=== PATIENT | female | born 1945 | race Hispanic/Latino ===

== ENCOUNTER 2018-04-11 14:22 | Inpatient (IN) | payer MEDICARE, OTHER ==
[~2018-04-11] VITALS: Ht 157.5 cm; Wt 68.0 kg
[2018-04-11 15:04] LABS: BASOPHILS % (AUTO) 0.8 % (0.0-5.0); EOSINOPHILS % (AUTO) 1.5 % (0.0-8.0); HEMATOCRIT 35.2 % (36-48); LYMPHOCYTES % (AUTO) 18.7 % (21.0-51.0); MEAN CORPUSCULAR HEMOGLOBIN 30.9 pg (27.0-33.0); MEAN CORPUSCULAR HGB CONC 33.6 g/dL (32.0-36.0); MEAN CORPUSCULAR VOLUME 91.8 fL (79-99); MONOCYTES % (AUTO) 7.6 % (3.0-13.0); NEUTROPHILS % (AUTO) 71.4 % (40.0-77.0); PLATELET COUNT (AUTO) 318 K/uL (130-400); RED BLOOD CELL COUNT(AUTO) 3.83 MIL/uL (4.00-5.50); WHITE BLOOD COUNT (AUTO) 14.3 K/uL (4.8-10.8)
[2018-04-11] MEDS ORDERED: SODIUM CHLORIDE 0.9% 1000ML 1,000 ML IV ONE (15:09)
[2018-04-11 15:18] LABS: INR 0.98 (0.85-1.15); PARTIAL THROMBOPLASTIN TIME 32.1 SEC (26.3-35.5); PROTHROMBIN TIME 10.3 SEC (9.6-11.6)
[2018-04-11 15:19] LABS: POTASSIUM 3.9 mmol/L (3.5-5.1)
[2018-04-11 15:24] LABS: ALBUMIN 3.5 g/dL (3.5-5.0); BILIRUBIN,TOTAL 0.3 mg/dL (0.2-1.0); TOTAL PROTEIN, SERUM 8.2 g/dL (6.0-8.3)
[2018-04-11 15:31] LABS: BILIRUBIN,URINE Negative (NEGATIVE); COLOR,URINE Yellow (YELLOW); GLUCOSE, URINE (UA) Negative (NEGATIVE); KETONES,URINE Negative (NEGATIVE); LEUKOCYTE ESTERASE ,URINE Small (NEGATIVE); NITRATE,URINE Negative (NEGATIVE); OCCULT BLOOD,URINE Negative (NEGATIVE); PROTEIN,URINE Negative (NEGATIVE); UROBILINOGEN,URINE 0.2 mg/dL (0.2-1.0)
[2018-04-11 15:33] LABS: APPEARANCE,URINE CLEAR (CLEAR); BACTERIA,URINE Few /HPF (None Seen); RBC,URINE None Seen /HPF (0-1); SQUAMOUS EPITHELIAL CELL,UR None Seen /HPF (0-2)
[2018-04-11] MEDS ORDERED: ZOSYN 3.375GM+NS 50ML 50 ML IV ONE (16:01)
[2018-04-11] MEDS ORDERED: SODIUM CHLORIDE 0.9% 50 ML IV ONE (16:02)
[2018-04-11] MEDS ORDERED: MORPHINE SULFATE 4 MG/1ML SYG ONE ×2 (16:11→20:13)
[2018-04-11] MEDS: SODIUM CHLORIDE 0.9% 1000ML 1,000 ML IV SCH ×2 (18:07→23:45)
[2018-04-11] MEDS: ZOSYN 3.375GM+NS 50ML 50 ML IV SCH (21:00)
[2018-04-11] MEDS: ENOXAPARIN SODIUM 30 MG/0.3 ML SQ SCH (21:00)
[2018-04-11] MEDS ORDERED: ONDANSETRON HCL 4 MG/2 ML VIAL ONE (21:39)
--- NOTE | 2018-04-11 23:10 | NUR ---
ADMISSION NOTE ADMIT TO ROOM 412 VIA STRETCHER FROM ER. PATIENT AWAKE, ALERT, OX3, NO SOB, NO C/O PAIN AT THIS TIME, LEFT HAND WITH 20 GAUGE CATHETER WITH IVF INFUSING WELL, REINFORCE NPO STATUS, FALL PRECAUTIONS, CALL MENDEZ AT REACH,. TEACH PATIENT PLAN OF CARE AND EXPECTED OUTCOME
[2018-04-11] MEDS ORDERED: LOSA50TA64 PO (23:25)
[2018-04-11] MEDS ORDERED: TRAZ-187 PO (23:25)
[2018-04-11] MEDS ORDERED: LAMO100T56 PO (23:25)
[2018-04-11] MEDS ORDERED: VORTIOXETINE 10 MG PO (23:25)
[2018-04-11] MEDS ORDERED: HYD25 PO (23:25)
[2018-04-11] MEDS: MORPHINE SULFATE 4 MG/1ML SYG IV PRN (23:44)
[2018-04-11] MEDS: FAMOTIDINE/PF 20 MG/2 ML VIAL IV SCH (23:44)
[2018-04-12] VITALS (7 sets, daily range): BP systolic 104–143; BP diastolic 40–68
[2018-04-12] MEDS: ZOSYN 3.375GM+NS 50ML 50 ML IV SCH ×3 (04:43→21:37)
[2018-04-12] MEDS: SODIUM CHLORIDE 0.9% 1000ML 1,000 ML IV SCH ×3 (07:27→21:51)
[2018-04-12] MEDS: FAMOTIDINE/PF 20 MG/2 ML VIAL IV SCH ×2 (08:52→21:37)
[2018-04-12 08:53] LABS: BASOPHILS % (AUTO) 0.7 % (0.0-5.0); EOSINOPHILS % (AUTO) 2.2 % (0.0-8.0); HEMATOCRIT 30.8 % (36-48); LYMPHOCYTES % (AUTO) 26.4 % (21.0-51.0); MEAN CORPUSCULAR HEMOGLOBIN 30.2 pg (27.0-33.0); MEAN CORPUSCULAR HGB CONC 33.1 g/dL (32.0-36.0); MEAN CORPUSCULAR VOLUME 91.4 fL (79-99); MONOCYTES % (AUTO) 10.1 % (3.0-13.0); NEUTROPHILS % (AUTO) 60.6 % (40.0-77.0); PLATELET COUNT (AUTO) 238 K/uL (130-400); RED BLOOD CELL COUNT(AUTO) 3.37 MIL/uL (4.00-5.50); RED CELL DISTRIBUTION WIDTH 13.3 % (11.0-15.5); WHITE BLOOD COUNT (AUTO) 10.5 K/uL (4.8-10.8)
[2018-04-12] MEDS: ENOXAPARIN SODIUM 30 MG/0.3 ML SQ SCH ×2 (08:53→21:38)
[2018-04-12] MEDS: TRINTELIX PO SCH (09:00)
[2018-04-12] MEDS: LOSARTAN 50 MG TABLET PO SCH (09:02)
[2018-04-12] MEDS: ACETAMINOPHEN 325 MG TAB PO PRN ×2 (11:41→19:34)
--- NOTE | 2018-04-12 11:50 | NUR ---
Nutrition Intervention: Nutrition consult for poor appetite, diverticulitis. Pt. admitted with Dx of diverticulitis, acute nausea. Pt. on Clear liquid diet. Pt. reports good p.o. intake and no problems with N/V. Labs reviewed(Alb 3.5). LBM: 04/12/18, loose per pt.; states due to antibiotics. SR-20, loose. BMI: 27.5, normal for age. Pt. and family member educated on Low Fiber diet and provided with education material. Pt. / family member verbalized understanding. Recommendations: 1) Rec. advance diet as tolerated to Low fiber Low residue Soft diet. 2) Low Fiber diet education given to patient and family member. 3) Continue to monitor pt's nutritional status and diet advancement. 4) RD to f/u in 3-5 days. Addendum: 04/12/18 at [address] Amended: Links added.
[2018-04-12] MEDS ORDERED: IBUPROFEN 200 MG TAB PO PRN (15:30)
[2018-04-12] MEDS ORDERED: LOPERAMIDE HCL 2 MG CAP PO SCH (15:30)
[2018-04-12] MEDS ORDERED: SIMETHICONE 80 MG TAB.CHEW PO PRN (15:30)
[2018-04-12] MEDS: MORPHINE SULFATE 4 MG/1ML SYG IV PRN (15:47)
--- NOTE | 2018-04-12 17:33 | NUR ---
INITIAL: Met with pt this afternoon to discuss dcp. Pt states that she lives w her spouse. Prior to admission was independent w ambulation and ADLs. She does not own any DME or receive services. Pt states that she feels safe and comfortable to return home at pr. Will continue to follow and wait for Md recommendations. Addendum: 04/12/18 at 1734 by BARRY ARCE CM Amended: Links added.
[2018-04-12] MEDS: HYDROXYZINE HCL 25 MG TABLET PO SCH (21:37)
[2018-04-12] MEDS: LAMOTRIGINE 25 MG TAB PO SCH (21:37)
[2018-04-12] MEDS: TRAZODONE HCL 100 MG TABLET PO SCH (21:38)
[2018-04-12] MEDS: ONDANSETRON HCL 4 MG/2 ML VIAL IV PRN (21:53)
[2018-04-13] MEDS: SODIUM CHLORIDE 0.9% 1000ML 1,000 ML IV SCH (02:41)
[2018-04-13 04:00] VITALS: BP 139/70
[2018-04-13] MEDS: ZOSYN 3.375GM+NS 50ML 50 ML IV SCH (04:51)
[2018-04-13 05:02] LABS: BASOPHILS % (AUTO) 0.7 % (0.0-5.0); HEMATOCRIT 28.3 % (36-48); LYMPHOCYTES % (AUTO) 43.2 % (21.0-51.0); MEAN CORPUSCULAR HEMOGLOBIN 31.8 pg (27.0-33.0); MEAN CORPUSCULAR HGB CONC 34.2 g/dL (32.0-36.0); MEAN CORPUSCULAR VOLUME 92.8 fL (79-99); MONOCYTES % (AUTO) 8.6 % (3.0-13.0); NEUTROPHILS % (AUTO) 43.5 % (40.0-77.0); PLATELET COUNT (AUTO) 227 K/uL (130-400); RED BLOOD CELL COUNT(AUTO) 3.05 MIL/uL (4.00-5.50); RED CELL DISTRIBUTION WIDTH 13.1 % (11.0-15.5); WHITE BLOOD COUNT (AUTO) 7.4 K/uL (4.8-10.8)
[2018-04-13 05:07] LABS: CREATININE 0.9 mg/dL (0.5-1.5); POTASSIUM 3.5 mmol/L (3.5-5.1)
[2018-04-13] MEDS ORDERED: POTASSIUM CHLORIDE 20 MEQ ERTAB PO ONE (05:25)
[2018-04-13] MEDS ORDERED: POTASSIUM CHLORIDE 10% ELIXIR 20 MEQ/15 ML UDCUP PO PRN (05:30)
[2018-04-13] MEDS ORDERED: LIDOCAINE HCL-MPF 1% 2ML VIAL IVP PRN (05:30)
[2018-04-13] MEDS ORDERED: POTASSIUM CHLORIDE 20 MEQ ERTAB PO PRN (05:30)
[2018-04-13] MEDS ORDERED: POTASSIUM CHLORIDE 20MEQ/100ML 100 ML IV PRN (05:30)
[2018-04-13 08:00] VITALS: BP 138/75
[2018-04-13] MEDS: LOSARTAN 50 MG TABLET PO SCH (08:59)
[2018-04-13] MEDS: TRINTELIX PO SCH (08:59)
[2018-04-13] MEDS: FAMOTIDINE/PF 20 MG/2 ML VIAL IV SCH ×2 (08:59→21:34)
[2018-04-13] MEDS: ENOXAPARIN SODIUM 30 MG/0.3 ML SQ SCH ×2 (09:00→21:35)
[2018-04-13] MEDS ORDERED: HYDROCODONE/ACETAMINOPHEN 5/325 MG TAB PO PRN (10:30)
[2018-04-13 12:00] VITALS: BP 150/69
[2018-04-13] MEDS: LEVOFLOXACIN 500 MG TABLET PO SCH (12:23)
[2018-04-13] MEDS ORDERED: CETIRIZINE HCL 5 MG TABLET PO ONE (12:30)
[2018-04-13 16:00] VITALS: BP 177/88
[2018-04-13] MEDS: METRONIDAZOLE 500 MG TABLET PO SCH ×2 (16:46→21:36)
[2018-04-13] MEDS: ONDANSETRON HCL 4 MG/2 ML VIAL IV PRN (19:08)
[2018-04-13 19:32] VITALS: BP 178/84
[2018-04-13] MEDS: HYDROXYZINE HCL 25 MG TABLET PO SCH (21:36)
[2018-04-13] MEDS: TRAZODONE HCL 100 MG TABLET PO SCH (21:36)
[2018-04-13] MEDS: LAMOTRIGINE 25 MG TAB PO SCH (21:36)
[2018-04-13 23:25] VITALS: BP 130/59
[2018-04-14 04:00] VITALS: BP 150/64
[2018-04-14] MEDS: METRONIDAZOLE 500 MG TABLET PO SCH ×2 (05:15→13:36)
[2018-04-14 05:52] LABS: BASOPHILS % (AUTO) 0.7 % (0.0-5.0); HEMATOCRIT 29.8 % (36-48); LYMPHOCYTES % (AUTO) 24.3 % (21.0-51.0); MEAN CORPUSCULAR HEMOGLOBIN 30.6 pg (27.0-33.0); MEAN CORPUSCULAR HGB CONC 33.1 g/dL (32.0-36.0); MEAN CORPUSCULAR VOLUME 92.3 fL (79-99); MONOCYTES % (AUTO) 8.3 % (3.0-13.0); NEUTROPHILS % (AUTO) 63.7 % (40.0-77.0); NUCLEATED RED BLOOD CELLS 0.1 % (0.0-0.19); PLATELET COUNT (AUTO) 231 K/uL (130-400); RED BLOOD CELL COUNT(AUTO) 3.23 MIL/uL (4.00-5.50); RED CELL DISTRIBUTION WIDTH 13.3 % (11.0-15.5); WHITE BLOOD COUNT (AUTO) 9.9 K/uL (4.8-10.8)
[2018-04-14 06:06] LABS: POTASSIUM 3.9 mmol/L (3.5-5.1)
[2018-04-14 08:38] VITALS: BP 137/64
[2018-04-14] MEDS ORDERED: CETIRIZINE HCL 5 MG TABLET PO SCH (09:00)
[2018-04-14] MEDS: TRINTELIX PO SCH (09:00)
[2018-04-14] MEDS: LEVOFLOXACIN 500 MG TABLET PO SCH (09:54)
[2018-04-14] MEDS: LOSARTAN 50 MG TABLET PO SCH (09:54)
[2018-04-14] MEDS: FAMOTIDINE/PF 20 MG/2 ML VIAL IV SCH (09:55)
[2018-04-14] MEDS: ENOXAPARIN SODIUM 30 MG/0.3 ML SQ SCH (09:57)
[2018-04-14] MEDS ORDERED: LEVO500T2 PO (11:02)
[2018-04-14] MEDS ORDERED: METR500T PO (11:02)
[2018-04-14 11:58] VITALS: BP 142/54
--- NOTE | 2018-04-14 13:50 | NUR ---
Patient discharged in stable condition. Patient/ given discharge instructions. Instructed on when to take next scheduled dose of antibiotics and instructed on discharge dx of diverticulitis. Patient/ verbalized understanding to all teaching. IV discontinued to Left forearm 20g. tolerated well. No other questions or concerns voiced.
== END 2018-04-14 14:00 | disposition home or self-care (01) | DRG 392 ==
LOC: EDH 14:22 → EDHIP 17:40 → OBSVTOIN 17:40 → 4BH 23:03
PROVIDERS: ADMIT Internal Medicine; ATTEND Internal Medicine
DX: K57.32 Diverticulitis of large intestine without perforation or abscess without bleeding (principal); N39.0 Urinary tract infection, site not specified; A04.72 Enterocolitis due to Clostridium difficile, not specified as recurrent; R51 Headache; F32.9 Major depressive disorder, single episode, unspecified; Z90.49 Acquired absence of other specified parts of digestive tract; Z88.8 Allergy status to other drugs, medicaments and biological substances
CPT/HCPCS: 36415; 70450; 74177; 80048; 80053; 81001; 82550; 83690; 84484; 85025; 85610; 85730; 87324; 93005; G0378; J1650; J2270; J2405; J2543; J3490; J7030

== ENCOUNTER → 2018-12-25 | Outpatient (CLI) | payer MEDICARE ==
[~2018-12-25] MED LIST: HYD25 PO; LAMO100T56 PO; LEVO500T2 PO; LOSA50TA64 PO; METR500T PO; TRAZ-187 PO; VORTIOXETINE 10 MG PO
== END | disposition home or self-care (01) ==
LOC: RAH 10:49
PROVIDERS: ATTEND Internal Medicine
DX: M75.101 Unspecified rotator cuff tear or rupture of right shoulder, not specified as traumatic (principal); M25.411 Effusion, right shoulder
CPT/HCPCS: 73221

== ENCOUNTER 2019-05-07 15:11 | Observation (INO) | payer MEDICARE ==
[~2019-05-07] VITALS: Ht 157.5 cm; Wt 67.0 kg
[~2019-05-07 15:11] MED LIST changes: +ERGO1TAB28 PO; +FLUO40CA7 PO; +GABA100C PO; -HYD25 PO; +HYDR-3421 PO; -LAMO100T56 PO; +LAMO50TA3 PO; -LEVO500T2 PO; +LOSA100T58 PO; -LOSA50TA64 PO; +MELA5CAP PO; -METR500T PO; +VIT1TABL6 PO; -VORTIOXETINE 10 MG PO
[2019-05-07] MEDS ORDERED: ONDANSETRON HCL 4 MG/2 ML VIAL ONE (15:59)
[2019-05-07] MEDS ORDERED: SODIUM CHLORIDE 0.9% 1000ML 1,000 ML IV ONE (15:59)
[2019-05-07 16:05] LABS: BASOPHILS % (AUTO) 0.5 % (0.0-5.0); EOSINOPHILS % (AUTO) 0.1 % (0.0-8.0); HEMATOCRIT 34.1 % (36-48); LYMPHOCYTES % (AUTO) 20.5 % (21.0-51.0); MEAN CORPUSCULAR HEMOGLOBIN 30.7 pg (27.0-33.0); MEAN CORPUSCULAR HGB CONC 34.6 g/dL (32.0-36.0); MEAN CORPUSCULAR VOLUME 88.8 fL (79-99); MONOCYTES % (AUTO) 8.1 % (3.0-13.0); NEUTROPHILS % (AUTO) 70.5 % (40.0-77.0); PLATELET COUNT (AUTO) 323 K/uL (130-400); RED BLOOD CELL COUNT(AUTO) 3.84 MIL/uL (4.00-5.50); RED CELL DISTRIBUTION WIDTH 11.9 % (11.0-15.5)
[2019-05-07 16:19] LABS: CREATININE 0.9 mg/dL (0.5-1.5); POTASSIUM 3.5 mmol/L (3.5-5.1)
[2019-05-07 16:24] LABS: MAGNESIUM 2.3 mg/dL (1.80-2.40)
[2019-05-07] MEDS ORDERED: SODIUM CHLORIDE 0.9% 1000ML 1,000 ML IV SCH (17:19)
[2019-05-07] MEDS ORDERED: CEFTRIAXONE SODIUM 1 GM IVP SCH (17:30)
[2019-05-07] MEDS ORDERED: LACTULOSE 20 GM/30 ML UDCUP PO PRN (17:30)
[2019-05-07] MEDS ORDERED: MORPHINE SULFATE 2 MG/ML 1ML SYG IV PRN (17:30)
[2019-05-07] MEDS ORDERED: ACETAMINOPHEN 325 MG TAB PO PRN ×2 (17:30)
[2019-05-07] MEDS ORDERED: ONDANSETRON HCL 4 MG/2 ML VIAL IV PRN (17:30)
[2019-05-07] MEDS ORDERED: ENOXAPARIN SODIUM 40 MG/0.4 ML SYRINGE SQ ONE (18:25)
[2019-05-07 19:00] VITALS: BP 159/73
[2019-05-07] MEDS: SODIUM CHLORIDE 0.9% 1000ML 1,000 ML IV SCH (20:00)
[2019-05-07] MEDS: FAMOTIDINE/PF 20 MG/2 ML VIAL IV SCH (21:18)
[2019-05-07 23:37] LABS: APPEARANCE,URINE Clear (CLEAR); BILIRUBIN,URINE Negative (NEGATIVE); COLOR,URINE Yellow (YELLOW); GLUCOSE, URINE (UA) Negative (NEGATIVE); KETONES,URINE 40 mg/dL (NEGATIVE); LEUKOCYTE ESTERASE ,URINE Moderate (NEGATIVE); NITRATE,URINE Negative (NEGATIVE); OCCULT BLOOD,URINE Negative (NEGATIVE); PH,URINE 6.5 (5.0-8.0); PROTEIN,URINE Trace mg/dL (NEGATIVE)
[2019-05-07 23:56] LABS: BACTERIA,URINE Moderate /HPF (None Seen); MUCUS,URINE Moderate LPF (None Seen); RBC,URINE None Seen /HPF (0-1); SQUAMOUS EPITHELIAL CELL,UR Few /HPF (0-2)
[2019-05-08 00:34] VITALS: BP 155/83
[2019-05-08 03:00] VITALS: BP 150/73
[2019-05-08] MEDS: SODIUM CHLORIDE 0.9% 1000ML 1,000 ML IV SCH ×2 (03:45→13:45)
[2019-05-08] MEDS ORDERED: HYDR25TA PO (04:02)
[2019-05-08] MEDS ORDERED: FLUO20CA30 PO (04:02)
[2019-05-08] MEDS ORDERED: LORAZEPAM 2 MG/ML 1 ML VIAL IVP PRN (04:15)
[2019-05-08] MEDS ORDERED: LORAZEPAM 2 MG/ML 1 ML VIAL ONE (04:18)
[2019-05-08 07:51] VITALS: BP 159/73
[2019-05-08] MEDS: FAMOTIDINE/PF 20 MG/2 ML VIAL IV SCH (08:25)
[2019-05-08] MEDS ORDERED: ENOXAPARIN SODIUM 40 MG/0.4 ML SYRINGE SQ SCH (09:00)
[2019-05-08] MEDS ORDERED: CEFTRIAXONE SODIUM 1 GM IVP SCH (10:00)
[2019-05-08] MEDS ORDERED: LACTULOSE 20 GM/30 ML UDCUP PO PRN (10:00)
[2019-05-08] MEDS ORDERED: LOSARTAN 100 MG TABLET PO SCH (10:00)
[2019-05-08 10:48] VITALS: BP 162/69
[2019-05-08 14:44] LABS: BASOPHILS % (AUTO) 0.6 % (0.0-5.0); EOSINOPHILS % (AUTO) 0.1 % (0.0-8.0); LYMPHOCYTES % (AUTO) 23.6 % (21.0-51.0); MEAN CORPUSCULAR HEMOGLOBIN 30.4 pg (27.0-33.0); MEAN CORPUSCULAR HGB CONC 33.6 g/dL (32.0-36.0); MEAN CORPUSCULAR VOLUME 90.4 fL (79-99); MONOCYTES % (AUTO) 10.3 % (3.0-13.0); NEUTROPHILS % (AUTO) 64.9 % (40.0-77.0); PLATELET COUNT (AUTO) 300 K/uL (130-400); RED BLOOD CELL COUNT(AUTO) 3.65 MIL/uL (4.00-5.50); WHITE BLOOD COUNT (AUTO) 11.1 K/uL (4.8-10.8)
[2019-05-08] MEDS ORDERED: LEVO500T2 PO (14:57)
[2019-05-08 14:59] LABS: ALBUMIN 3.7 g/dL (3.5-5.0); BILIRUBIN,TOTAL 0.3 mg/dL (0.2-1.0); CREATININE 0.9 mg/dL (0.5-1.5); POTASSIUM 3.6 mmol/L (3.5-5.1); TOTAL PROTEIN, SERUM 7.3 g/dL (6.0-8.3)
--- NOTE | 2019-05-08 15:13 | NUR ---
CALLEDTO DR KING OFFICE AND DR BEARD FROM [facility] ,PER PATIENT REQUEST TO GET MED LIST .. NO ANSWER ON DR KING AND OFFICE FOR [facility] IS ONLY OPEN FROM SAT TO SATURDAY .
[2019-05-08 16:00] VITALS: BP 190/89
--- NOTE | 2019-05-08 16:00 | NUR ---
Initial Assessment SW spoke with patient. Patient lives with spouse. No home services. DME: [facility], glucometer (no insulin). Patient is independent and drives. PCP is Dr. Ryder. Pharmacy is [facility]. DCP is for home. Patient is presently on a 1:1 observation due to having anxiety and panic attacks. Patient states she sees Psychiatrist from [place]- Dr. Deyanira Mckay every 3 months. Patient admits that she has not seen Psychiatrist since May 2018. Patient denies auditory and visual hallucinations. Patient also denies suicidal and/or homicidal ideations. SW will continue to follow up with patient as needed. Addendum: 05/08/19 at 1608 by DAKOTA FABIAN Amended: Links added.
[2019-05-08] MEDS ORDERED: HYDRALAZINE HCL 20 MG/ML VIAL IV SCH (16:34)
[2019-05-08 17:32] VITALS: BP 153/67
[2019-05-08] MEDS ORDERED: LAMOTRIGINE 25 MG TAB PO SCH (21:00)
[2019-05-08] MEDS ORDERED: GABAPENTIN 100 MG CAPSULE PO SCH (21:00)
[2019-05-08] MEDS ORDERED: HYDROXYZINE HCL 25 MG TABLET PO SCH (21:00)
[2019-05-08] MEDS ORDERED: **HM** MELATONIN 5MG PO SCH (21:00)
[2019-05-08] MEDS ORDERED: TRAZODONE HCL 100 MG TABLET PO SCH (21:00)
[2019-05-09] MEDS ORDERED: LOSARTAN 100 MG TABLET PO SCH (09:00)
[2019-05-09] MEDS ORDERED: CEREFOLIN PO SCH (09:00)
[2019-05-09] MEDS ORDERED: LEVOFLOXACIN 500 MG TABLET PO SCH (09:00)
[2019-05-09] MEDS ORDERED: ERGOTAMINE PO PRN (09:00)
[2019-05-09] MEDS ORDERED: CAFFEINE PO PRN (09:00)
[2019-05-09] MEDS ORDERED: FLUOXETINE HCL 20 MG CAPSULE PO SCH (09:00)
== END 2019-05-08 18:48 | disposition home or self-care (01) ==
LOC: EDH 15:11 → EDHIP 17:19 → 4CH 19:10
PROVIDERS: ADMIT Family Medicine; ATTEND Family Medicine
DX: E87.1 Hypo-osmolality and hyponatremia (principal); R11.2 Nausea with vomiting, unspecified; R10.11 Right upper quadrant pain; N39.0 Urinary tract infection, site not specified; E86.9 Volume depletion, unspecified; F32.9 Major depressive disorder, single episode, unspecified; F41.9 Anxiety disorder, unspecified; E03.9 Hypothyroidism, unspecified; E78.5 Hyperlipidemia, unspecified; Z90.49 Acquired absence of other specified parts of digestive tract; Z79.899 Other long term (current) drug therapy; Z88.6 Allergy status to analgesic agent; Z88.8 Allergy status to other drugs, medicaments and biological substances
CPT/HCPCS: 36415 ×2; 74176; 76705; 80048; 80053; 81001; 82550 ×2; 82977; 83735; 83935; 84484; 85025 ×2; 87088; 93005; 96361 ×2; 96372; 96374; 96375; 96376; 99284; G0378 ×25; J0360; J0696; J1650 ×2; J2060; J2405; J3490 ×2; J7030

== ENCOUNTER → 2021-12-28 | Outpatient (CLI) | payer OTHER ==
[~2021-12-28] MED LIST changes: +FLUO20CA30 PO; -FLUO40CA7 PO; +HYDR25TA PO; +LEVO500T2 PO
== END | disposition home or self-care (01) ==
LOC: RAH 10:13
PROVIDERS: ATTEND Internal Medicine
DX: K57.92 Diverticulitis of intestine, part unspecified, without perforation or abscess without bleeding (principal); M47.815 Spondylosis without myelopathy or radiculopathy, thoracolumbar region
CPT/HCPCS: 74176

== ENCOUNTER 2022-01-24 02:43 | Emergency (ER) | payer OTHER ==
[~2022-01-24] VITALS: Ht 157.5 cm; Wt 72.6 kg
[2022-01-24] MEDS ORDERED: PROCHLORPERAZINE 10MG/2ML INJ ONE (03:15)
[2022-01-24 03:20] LABS: BASOPHILS % (AUTO) 1.1 % (0.0-5.0); EOSINOPHILS % (AUTO) 3.9 % (0.0-8.0); HEMATOCRIT 33.2 % (36-48); LYMPHOCYTES % (AUTO) 41.5 % (21.0-51.0); MEAN CORPUSCULAR HEMOGLOBIN 30.7 pg (27.0-33.0); MEAN CORPUSCULAR HGB CONC 33.4 g/dL (32.0-36.0); MONOCYTES % (AUTO) 9.8 % (3.0-13.0); NEUTROPHILS % (AUTO) 43.4 % (40.0-77.0); PLATELET COUNT (AUTO) 262 K/uL (130-400); RED BLOOD CELL COUNT(AUTO) 3.61 MIL/uL (4.00-5.50); WHITE BLOOD COUNT (AUTO) 7.4 K/uL (4.8-10.8)
[2022-01-24 03:28] LABS: CREATININE 1.1 mg/dL (0.5-1.5); POTASSIUM 3.9 mmol/L (3.5-5.1)
[2022-01-24] MEDS ORDERED: PROCHLORPERAZINE EDISYLATE 5 MG/ML 2 ML VIAL IVP ONE (03:30)
[2022-01-24] MEDS ORDERED: KETOROLAC 15MG/ML VIAL (15MG/ML) IV ONE (03:30)
[2022-01-24] MEDS ORDERED: 0.9%NACL 1000ML 1,000 ML IV ONE (03:30)
[2022-01-24] MEDS ORDERED: PROCHLORPERAZINE 10MG/2ML INJ IV ONE (03:30)
[2022-01-24 03:33] LABS: ALBUMIN 3.9 g/dL (3.5-5.0); TOTAL PROTEIN, SERUM 8.3 g/dL (6.0-8.3)
[2022-01-24] MEDS ORDERED: PHARMACY COMMUNICATION MISC SCH ×2 (04:00→04:30)
[2022-01-24] MEDS ORDERED: MORPHINE 4 MG SYG IVP ONE (04:00)
[2022-01-24] MEDS ORDERED: MORPHINE 4 MG SYG ONE (04:10)
[2022-01-24] MEDS ORDERED: ACET-2079 PO (04:22)
[2022-01-24 04:35] VITALS: BP 132/57
== END 2022-01-24 04:51 | disposition home or self-care (01) ==
LOC: EDH 02:43
DX: G43.909 Migraine, unspecified, not intractable, without status migrainosus (principal); I10 Essential (primary) hypertension; F32.A Depression, unspecified; E86.1 Hypovolemia; E78.00 Pure hypercholesterolemia, unspecified; Z90.710 Acquired absence of both cervix and uterus; Z90.49 Acquired absence of other specified parts of digestive tract; Z88.8 Allergy status to other drugs, medicaments and biological substances; Z88.5 Allergy status to narcotic agent; Z79.1 Long term (current) use of non-steroidal anti-inflammatories (NSAID)
CPT/HCPCS: 99284; 80053; 85025; 36415; 96374; 96361; 96375; J0780; J2270; J1885; 96365